=== PATIENT | female | born 1995 | race Caucasian/White ===

== ENCOUNTER → 2016-11-25 | Outpatient (CLI) | payer OTHER | END | disposition disaster alternative care site (69) | LOC: GAMB 17:53 | DX: S09.90XA Unspecified injury of head, initial encounter (principal); J45.909 Unspecified asthma, uncomplicated; D76.1 Hemophagocytic lymphohistiocytosis; R42 Dizziness and giddiness; Z79.899 Other long term (current) drug therapy; Z88.2 Allergy status to sulfonamides | CPT/HCPCS: A0425; A0429 ==

== ENCOUNTER → 2017-02-20 | Emergency (ER) | payer OTHER | END | disposition disaster alternative care site (69) | LOC: GAMB 13:43 | DX: T78.40XA Allergy, unspecified, initial encounter (principal); T78.1XXA Other adverse food reactions, not elsewhere classified, initial encounter ==